=== PATIENT | female | born 1985 | race Caucasian/White ===

== ENCOUNTER → 2018-04-11 18:48 | Outpatient (CLI) | payer BC, SELFPAY ==
[2018-04-20 13:14] LABS: HPV Reflexed? NOT INDICATED
== END ==
PROVIDERS: Referring Provider Obstetrics & Gynecology; Visit Provider Obstetrics & Gynecology
DX: Z12.4 Encounter for screening for malignant neoplasm of cervix (principal)
CPT/HCPCS: 88175; G0145

== ENCOUNTER → 2019-03-01 | Outpatient (CLI) | payer OTHER, SELFPAY ==
[2019-03-01 10:17] LABS: Hematocrit 41.3 % (37-47); Hemoglobin 12.9 g/dL (12.0-15.0); Mean Corp Hgb Conc 31.2 g/dL (32-36); Mean Corpuscular Hgb 27.2 pg (27.0-32.0); Mean Corpuscular Volume 87.1 fL (81-99); Platelet Count 273 K/mm3 (150-450); RBC Distribution Width CV 14.1 % (11.6-14.6); RBC Distribution Width SD 44.8 fl (35.1-43.9); Red Blood Count 4.74 M/mm3 (4.2-5.4); White Blood Count 6.9 K/mm3 (4.4-11.0)
[2019-03-01 11:07] LABS: hCG Titer Quant., Serum < 1 mIU/mL (1-3)
[2019-03-01 11:16] LABS: Progesterone Level 1.04 ng/mL (See Comment); Rubella IgG 27.5 IU/mL
[2019-03-01 17:58] LABS: AST(SGOT) 12 U/L (15-37); Alanine Aminotransfer ALT/SGPT 16 U/L (13-56); Albumin, Serum 3.6 g/dL (3.2-5.0); Alkaline Phosphatase 88 U/L (45-117); Anion Gap 9 (5-15); BUN 14 mg/dL (7-18); BUN/Creat Ratio 16.5 RATIO (10-20); Bilirubin, Direct 0.07 mg/dL (0.00-0.30); Calcium,Total 8.9 mg/dL (8.5-10.1); Chloride 108 mmol/L (98-107); Creatinine, Serum 0.85 mg/dL (0.55-1.02); EST Glomerular Filtration Rate 82 mL/min (>60); Est Glom Filt Rate - Afr Amer 99 mL/min (>60); Estradiol 51.3 pg/mL; Follicle Stimulating Hormone 6.5 mIU/mL; Globulin 4.3 g/dL (2.2-4.2); Glucose 90 mg/dL (74-106); Phosphorus 2.9 mg/dL (2.5-4.9); Potassium 3.7 mmol/L (3.5-5.1); Prolactin 13.5 ng/mL; Protein, Total 7.9 g/dL (6.4-8.2); Sodium Level 141 mmol/L (136-145)
[2019-03-04 10:25] LABS: 17-Hydroxyprogesterone 58 ng/dL (.)
[2019-03-04 14:07] LABS: DHEA Sulfate 468.8 ug/dL (84.8-378.0)
[2019-03-04 14:27] LABS: Anti-Mullerian Hormone,Serum 3.77 ng/mL (.); V-Zoster IgG (Immunity) 969 index (Immune >165)
== END | disposition home or self-care (01) ==
LOC: LAB 09:27
PROVIDERS: Referring Provider Obstetrics & Gynecology Reproductive Endocrinology; Visit Provider Obstetrics & Gynecology Reproductive Endocrinology
DX: Z01.83 Encounter for blood typing (principal); N91.4 Secondary oligomenorrhea; E03.9 Hypothyroidism, unspecified; E16.8 Other specified disorders of pancreatic internal secretion; Z11.59 Encounter for screening for other viral diseases; E55.9 Vitamin D deficiency, unspecified
CPT/HCPCS: 36415; 80048; 80076; 82306; 82627; 82670; 83001; 83002; 83498; 83516; 84100; 84144; 84146; 84403; 84439; 84443; 84702; 85027; 86762; 86787; 86900; 86901; 82626

== ENCOUNTER → 2019-04-16 15:58 | Outpatient (CLI) | payer OTHER, SELFPAY ==
[2019-04-16 17:51] LABS: T4 Free Direct 1.12 ng/dL (0.76-1.46); Thyroid Stim Hormone (TSH) 2.48 uIU/mL (0.358-3.74)
[2019-04-18 16:07] LABS: Thyroid Peroxidase AB 76 IU/mL (0-34)
[2019-04-20 12:51] LABS: Thyroglobulin Antibody 3.6 IU/mL (0.0-0.9)
== END ==
PROVIDERS: Referring Provider Obstetrics & Gynecology Reproductive Endocrinology; Visit Provider Obstetrics & Gynecology Reproductive Endocrinology
DX: E03.8 Other specified hypothyroidism (principal)
CPT/HCPCS: 36415; 84439; 84443; 86376; 86800